=== PATIENT | female | born 1995 | race Caucasian/White ===

== ENCOUNTER 2020-03-28 16:30 | Emergency (ER) | payer OTHER ==
--- OUTSIDE RECORDS SUMMARY | 2020-03-28 16:37 | XMS ---
:1995 Author Organization [facility] Support Name Relationship Address Phone [facility] Unavailable Unavailable Unavailable ENMANUEL ZHOU MOTHER [address] [place] [address] Re-disclosure Warning The records that you are about to access may contain information from federally- assisted alcohol or drug abuse programs. If such information is present, then the following federally mandated warning applies: This information has been disclosed to you from records protected by federal confidentiality rules (42 CFR part 2). The federal rules prohibit you from making any further disclosure of this information unless further disclosure is expressly permitted by the written consent of the person to whom it pertains or as otherwise permitted by 42 CFR part 2. A general authorization for the release of medical or other information is NOT sufficient for this purpose. The Federal rules restrict any use of the information to criminally investigate or prosecute any alcohol or drug abuse patient.The records that you are about to access may contain highly sensitive health information, the redisclosure of which is protected by Article 27-F of the [facility] Public Health law. If you continue you may haveaccess to information: Regarding HIV / AIDS; Provided by facilities licensed or operated by the [facility] Office of Mental Health; or Provided by the [facility] Office for People With Developmental Disabilities. If such information is present, then the following [facility] mandated warning applies: This information has been disclosed to you from confidential records which are protected by state law. State law prohibits you from making any further disclosure of this information without the specific written consent of the person to whom it pertains, or as otherwise permitted by law. Any unauthorized further disclosure in violation of state law may result in a fine or halfway sentence or both. A general authorization for the release of medical or other information is NOT sufficient authorization for further disclosure. Insurance Providers Payer name Policy type Policy ID Covered Covered green party's Policy P aiden / Coverage green party ID relationship to [employer] Inf ormation type ledesma [employer] [id number] [place] [id number] 03 [facility] 3
--- NOTE | 2020-03-28 16:46 | PDOC ---
History of Present Illness - General Chief Complaint: Shortness of Breath Stated Complaint: SOB Time Seen by Provider: 03/28/20 16:36 - History of Present Illness Initial Comments: 03/28/20 16:42 24F with PMH of PCOS, ADHD (recently prescribed buproprion off-label), childhood asthma (not since she was 6) presents with three days of SOB. 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 Since then, she has become much more concious of breathing. Reports not being able to get a full deep breath, chest tightness, lightheadedness. Reports swollen sinuses that improved with a nasal spray. Denies fever, congestion, sore throat, cough, chest pain, abdominal pain. PMH: as above PSH: rhinoplasty, wisdom teeth Meds: buproprion Allergies: sulfa ETOH: occasional use drugs: denies tobacco: denies ROS GENERAL/CONSTITUTIONAL: No fever or chills. No weakness. HEAD, EYES, EARS, NOSE AND THROAT: No change in vision. No ear pain or discharge. No sore throat. CARDIOVASCULAR: No chest pain. shortness of breath RESPIRATORY: No cough, wheezing, or hemoptysis. GASTROINTESTINAL: No nausea, vomiting, diarrhea or constipation. GENITOURINARY: No dysuria, frequency, or change in urination. MUSCULOSKELETAL: No joint or muscle swelling or pain. No neck or back pain. SKIN: No rash NEUROLOGIC: No headache, vertigo, loss of consciousness, or change in s trength/sensation. ENDOCRINE: No increased thirst. No abnormal weight change HEMATOLOGIC/LYMPHATIC: No anemia, easy bleeding, or history of blood clots. ALLERGIC/IMMUNOLOGIC: No hives or skin allergy. PE GENERAL: Awake, alert, and fully oriented, in no acute distress HEAD: No signs of trauma, normocephalic, atraumatic EYES: PERRLA, EOMI, sclera anicteric, conjunctiva clear ENT: Auricles normal inspection, hearing grossly normal, nares patent, oropharynx clear without exudates. Moist mucosa NECK: Normal ROM, supple, no lymphadenopathy, JVD, or masses LUNGS: No distress, speaks full sentences, clear to auscultation bilaterally HEART: Regular rate and rhythm, normal S1 and S2, no murmurs, rubs or gallops, peripheral pulses normal and equal bilaterally. ABDOMEN: Soft, nontender, normoactive bowel sounds. No guarding, no rebound. No masses EXTREMITIES : Normal inspection, Normal range of motion, no edema. No clubbing or cyanosis. NEUROLOGICAL: Normal speech, normal gait, no focal sensorimotor deficits SKIN: Warm, Dry, normal turgor, no rashes or lesions noted Vital Signs Temp Pulse Resp BP Pulse Ox 98.6 F 82 16 129/77 100 03/28/20 16:31 03/28/20 16:31 03/28/20 16:31 03/28/20 16:31 03/28/20 16:31 MDM: 24F with PMH of PCOS, ADHD (recently prescribed buproprion off-label), childhood asthma (not since she was 6) presents with three days of SOB. Vitals and exam benign. Likely anxiety or side effect of new buproprion prescription. Will not pursue diagnostic studies as there is no evidence of an acute medical problem. -DC home Past History - Medical History Allergies/Adverse Reactions: Allergies Allergy/AdvReac Type Severity Reaction Status Date / Time No Known Allergies Allergy Verified 03/28/20 16:31 Home Medications: Ambulatory Orders Bupropion HCl [Wellbutrin Xl -] 150 mg PO DAILY 03/28/20 COPD: No - Reproductive History Is Patient Now?: No (UNKOWN) - Immunization History Immunization Up to Date: Yes - Psycho-Social/Smoking History Smoking History: Never smoked Number of Cigarettes Smoked Daily: 0 - Substance Abuse Hx (Audit-C & DAST Scrn) How often the patient has a drink containing alcohol: Never Score: In Men: 4 or > Positive; In Women: 3 or > Positive: 0 Screen Result (Pos requires Nsg. Audit-10AR): Negative In the last yr the pt used illegal drug/Rx for NonMed reason: No Score: Yes response is considered Positive: 0 Screen Result (Positive result requires Nsg. DAST-10): Negative *Physical Exam - Vital Signs Last Vital Signs Temp Pulse Resp BP Pulse Ox 98.6 F 82 16 129/77 100 03/28/20 16:31 03/28/20 16:31 03/28/20 16:31 03/28/20 16:03/28/20 16:31 Discharge - Discharge Information Problems reviewed: Yes Clinical Impression/Diagnosis: Anxiety Condition: Stable - Admission No - Follow up/Referral - Patient Discharge Instructions Additional Instructions: You were seen in the ER for shortness of breath. We took your vitals and did a physical examination and determined that no further testing was necessary. You likely are having symptoms of anxiety, possibly related to your new medication, buproprion. This can happen with this medication initially, but you should continue to take it until told otherwise by your prescribing physician. Please follow up with your primary doctor within three days. Please return to the ER for fever, difficulty breathing, chest pain, or any concerning symptoms. - Post Discharge Activity
[2020-03-28 16:51] VITALS: BP 129/77; PULSE 82; TEMP 98.6; BMI 21.9
--- NOTE | 2020-03-28 17:12 | PDOC ---
Attending Attestation - Resident Resident Name: Cristian Ramirez - ED Attending Attestation I have performed the following: I have examined & evaluated the patient, The case was reviewed & discussed with the resident, I agree w/resident's findings & plan, Exceptions are as noted - HPI HPI: 03/28/20 17:08 Difficulty "taking a deep breath", intermittently, for several days. No fever/chills, URI symptoms, sore throat, cough, chest pain, shortness of breath, abdominal pain. Admits significant stress and anxiety over a "palate widening" procedure recommended by her dentist. Asthma as a child, but no subsequent symptoms. Recently began Wellbutrin for mood disorder. - Physicial Exam PE: 03/28/20 17:10 Alert, no acute distress. No tachypnea or dyspnea. Respiratory rate 16 and unlabored. O2 sat 100% on room air HEENT clear Neck supple without bruit mass or nodes Lungs clear, full breath sounds bilaterally, no wheezes rales or rhonchi CV regular without murmur rub or gallop Abdomen benign - Medical Decision Making 03/28/20 17:11 Assessment: Anxiety, hyperventilation Plan: Reassure. Relaxation techniques discussed. Follow-up primary physician. Fully ambulatory and in no distress at discharge. Discharge - Discharge Information Problems reviewed: Yes Clinical Impression/Diagnosis: Anxiety Condition: Stable Disposition: HOME - Admission No - Follow up/Referral - Patient Discharge Instructions Additional Instructions: You were seen in the ER for shortness of breath. We took your vitals and did a physical examination and determined that no further testing was necessary. You likely are having symptoms of anxiety, possibly related to your new medication, buproprion. This can happen with this medication initially, but you should continue to take it until told otherwise by your prescribing physician. Please follow up with your primary doctor within three days. Please return to the ER for fever, difficulty breathing, chest pain, or any concerning symptoms. - Post Discharge Activity
== END 2020-03-28 16:52 | disposition home or self-care (01) ==
LOC: FER 16:30
DX: F41.9 Anxiety disorder, unspecified (principal)
CPT/HCPCS: 99283-25